=== PATIENT | male | born 1980 | race African-American/Black ===

== ENCOUNTER 2017-04-08 15:33 | Inpatient (IN) | payer BC, OTHER ==
--- NOTE | 2017-04-08 16:17 | PDOC ---
History of Present Illness - General Chief Complaint: Eye Problem Stated Complaint: PAIN AND PRESSURE BEHIND EYE Time Seen by Provider: 04/08/17 16:17 - History of Present Illness Initial Comments: 36 year old male with HTN presenting with graduallyworsenign vision over the past 6 months. He was seen by Dr. Gramajo on 01/02/17 for worsening vision during whch he had a CT head without con that only demonstrated a probable right temporal arachnoid cyst with grade II paipilledema and 20/25 vision bilaterally. He was supposed to increase his anti-htn meds and add on Diamox but never started his Diamox due to some confusion. Since then he has had worsening vision and saw his Opthomolgist (Dr. Jett) on the day of admission who notices slightly worsened visual acuity at 20/30 bilaterally and blurred optic disk margins. Today he is complaining of worsened vision and occasional eye tearing. Of note, an MRI on 01/27/17 which was essentially negative for any edema. 04/08/17 19:29 04/08/17 20:07 04/08/17 20:10 Past History - Past Medical History Allergies/Adverse Reactions: Allergies Allergy/AdvReac Type Severity Reaction Status Date / Time No Known Allergies Allergy Verified 04/08/17 15:54 Home Medications: Ambulatory Orders NK [No Known Home Medication] 04/08/17 Diabetes: Yes HTN: Yes Hypercholesterolemia: Yes - Psycho/Social/Smoking Cessation Hx Suicidal Ideation: No Smoking History: Never smoked Have you smoked in the past 12 months: No Information on smoking cessation initiated: No Hx Alcohol Use: Yes (socially) Drug/Substance Use Hx: No Substance Use Type: None Review of Systems - Review of Systems Constitutional: No: Chills, Diaphoresis, Fever HEENTM: Yes: Eye Pain, Blurred Vision, Recent change in vision Respiratory: No: Cough, Orthopnea, Shortness of Breath, SOB with Exertion Cardiac (ROS): No: Chest Pain, Irregular Heart Rate, Lightheadedness ABD/GI: No: Abdominal Distended, Constipated, Diarrhea, Nausea Musculoskeletal: No: Back Pain, Gout, Joint Pain Integumentary: No: Change in Color, Erythema, Flushing, Lesions Neurological: No: Headache, Numbness, Paresthesia *Physical Exam - Vital Signs Last Vital Signs Temp Pulse Resp BP Pulse Ox 98.5 F 98 H 20 145/93 100 04/08/17 15:46 04/08/17 15:46 04/08/17 15:46 04/08/17 15:46 04/08/17 15:46 - Physical Exam General Appearance: Yes: Appropriately Dressed. No: Apparent Distress HEENT: positive: EOMI (Endorses some pain with EOM), Other (Recent Opthalmalogic exam by Dr. Lerma: 20/30 vision bilaterally iop 20 and 18. PEERA but poorly reactive. Conjunctiva/ Scleera- trace staining. Cornea- no superficial punctate keratopathy. Anterior CHamber- Dep and quiet. Iris - wnl. Lens- clear. Cup/ Disc Ratio 0.25 with worsening edema and blurred disk margins. ). negative: RABIA (Pupils dilated in the setting of recent opthamolgist visit and eye drop administration) Neck: positive: Trachea midline, Normal Thyroid, Supple. negative: Tender, Rigid Respiratory/Chest: positive: Lungs Clear, Normal Breath Sounds. negative: Chest Tender, Respiratory Distress, Accessory Muscle Use Cardiovascular: positive: Regular Rhythm, Regular Rate, S1, S2. negative: Edema , Murmur Gastrointestinal/Abdominal: positive: Normal Bowel Sounds, Flat, Soft. negative : Tender Integumentary: positive: Normal Color, Dry Neurologic: positive: Fully Oriented, Alert, Normal Mood/Affect ED Treatment Course - LABORATORY CBC & Chemistry Diagram: 04/08/17 18:00 04/08/17 18:00 Medical Decision Making - Medical Decision Making 36 year old with HTN and HLD presenting with gradually worsenign vision and pailledema on recent opthalmic exam. Recommedned by both his opthalmologist and neurlogist to have an LP performed. After converssation with Dr. Gramajo he needs a radiographic guided LP (given body habitus) with opening pressure, closing pressure, gram stain, glucose, protein, cell count, differential, closing pressure, TB, Cryptoccocus, and 50 CC drained total for therapy. Will admit patient for IR guided LP, optho, and neuro consult. 04/08/17 20:14 04/08/17 20:19 *DC/Admit/Observation/Transfer Diagnosis at time of Disposition: Intracranial hypertension - Discharge Dispostion Admit: Yes - Attestations Physician Attestion: 04/08/17 20:27 I, Dr. Eli Petty, attest that this document has been prepared under my direction and personally reviewed by me in its entirety. I further attest, that it accurately reflects all work, treatment, procedures and medical decision -making performed by me.
[2017-04-08] MEDS ORDERED: ACETAMINOPHEN 1000 MG/100 ML VIAL (NON FORMULARY) IVPB ONE (17:47)
[2017-04-08] MEDS ORDERED: METOCLOPRAMIDE HCL INJECTION 10 MG/2 ML VIAL IVPB ONE (17:47)
[2017-04-08] MEDS ORDERED: METOCLOPRAMIDE HCL INJECTION 10 MG/2 ML VIAL ONE (17:50)
[2017-04-08] MEDS ORDERED: ACETAMINOPHEN INJECTION 100 ML IVPB ONE (18:03)
[2017-04-08 18:11] LABS: URINE APPEARANCE CLEAR; URINE BILIRUBIN NEGATIVE (NEGATIVE); URINE BLOOD NEGATIVE (NEGATIVE); URINE COLOR STRAW; URINE GLUCOSE (UA) 1+ (NEGATIVE); URINE KETONE NEGATIVE (NEGATIVE); URINE LEUK ESTERASE NEGATIVE (NEGATIVE); URINE NITRITE NEGATIVE (NEGATIVE); URINE PROTEIN NEGATIVE (NEGATIVE); URINE UROBILINOGEN NEGATIVE mg/dL (0.2-1.0)
--- NOTE | 2017-04-08 18:15 | PDOC ---
Attending Attestation - Resident Resident Name: Eli Petty - ED Attending Attestation I have performed the following: I have examined & evaluated the patient, The case was reviewed & discussed with the resident, I agree w/resident's findings & plan, Exceptions are as noted - HPI HPI: 04/08/17 18:09 36-year-old male with past medical history of hypertension, hyperlipidemia, obesity presents with progressive worsening of papilledema. Patient has had intermittent blurry vision for last 6 months where he was evaluated by a neurologist, Dr. Barbour and an sterilisation technician Dr. Pam Garcia. Initially, the patient had a head CT that was unremarkable and was seen by the neurologist who advised the patient may potentially have pseudotumor cerebri and was given a prescription for Diamox and counseled on weight loss. Patient was unable to fill his prescription and did not Diamox. He did however in January 2017 follow-up with an MRI which was unremarkable. Last 2 days, patient's complaint of progressive bilateral eye pressures and blurry vision. He had seen the oncologist today when noted vision of 20/30 both eyes and throat unremarkable exam demonstrated papilledema worsened in both eyes. The patient is up most contact his neurologist and advised patient to come to the ER for further evaluation. Denies headache. 04/08/17 18:[address] Garcia's notes: "Vasc 20/30 ou - blurry IOP: 20mmHg 18 mmHg Pupilars PERRLA but poorly reactive" Conjunctiva/Sclera - trace straining ou Cornea - no superficial punctate keratopathy ou Anterio chamber - deep and quiet ou Iris - WNL ou Lens - clear Dilated fundus Exam with tropicamide 0.5% 90 and 20 diopter lens Cup/Disc Ratio 0.25 ou with worsening EDEMA ou - blurred disk margins normal macula, vessels, and periphery" - Physicial Exam PE: 04/08/17 18:17 GENERAL: Awake, alert, and fully oriented, in no acute distress. Obese HEAD: No signs of trauma EYES: PERRLA, EOMI, sclera anicteric, conjunctiva clear ENT: Auricles normal inspection, hearing grossly normal, nares patent, oropharynx clear without exudates. NECK: Normal ROM, supple, no lymphadenopathy, JVD, or masses LUNGS: Breath sounds equal, clear to auscultation bilaterally. No wheezes, and no crackles HEART: Regular rate and rhythm, normal S1 and S2, no murmurs, rubs or gallops ABDOMEN: Soft, nontender, normoactive bowel sounds. No guarding, no rebound. No masses EXTREMITIES: Normal range of motion, no edema. No clubbing or cyanosis. No cords, erythema, or tenderness NEUROLOGICAL: Cranial nerves II through XII grossly intact. Normal speech, normal gait SKIN: Warm, Dry, normal turgor, no rashes or lesions noted. - Medical Decision Making 04/08/17 18:17 Vital Signs Temp Pulse Resp BP Pulse Ox 98.5 F 98 H 20 145/93 100 04/08/17 15:46 04/08/17 15:46 04/08/17 15:46 04/08/17 15:46 04/08/17 15:46 Papilledema needs further evaluation. Within differential is pseudotumor cerebri. We'll contact patient's neurologist for further plan and disposition. 04/08/17 18:30 Dr. Barbour recommends admission for IR guided lumbar puncture and admission.
[2017-04-08 18:43] LABS: BASOPHIL 0.2 % (0-2.0); EOSINOPHIL 0.4 % (0-4.5); MCH 27.7 pg (25.7-33.7); MCHC 32.4 g/dl (32.0-35.9); MEAN CELL VOLUME 85.5 fl (80-96); MEAN PLT VOLUME 9.1 fl (7.5-11.1); NEUTROPHILS 68.5 % (42.8-82.8); PLATELET COUNT 237 K/MM3 (134-434); RDW 13.4 % (11.9-15.9); WHITE BLOOD COUNT 13.9 K/mm3 (4.0-10.0)
[2017-04-08 19:17] LABS: INR 0.97 (0.82-1.09); PROTHROMBIN TIME (PATIENT) 10.7 SEC (9.98-11.88)
[2017-04-08 19:20] LABS: ACTIVATED PTT 33.3 SECONDS (26.9-34.4)
[2017-04-08 19:24] LABS: ANION GAP 5 (8-16); BILIRUBIN,TOTAL 0.4 mg/dL (0.2-1.0); CALCIUM 9.6 mg/dL (8.5-10.1); CO2 32 mmol/L (21-32); CREATININE 1.1 mg/dL (0.7-1.3); GLUCOSE,RANDOM 145 mg/dL (74-106); SGOT/AST 21 U/L (15-37); SGPT/ALT 42 U/L (12-78); TOT PROT 8.4 g/dl (6.4-8.2)
--- NOTE | 2017-04-08 19:24 | PN ---
Teaching Attending Note Name of Resident: Kami Harman ATTENDING PHYSICIAN STATEMENT I saw and evaluated the patient. I reviewed the resident's note and discussed the case with the resident. I agree with the resident's findings and plan as documented. SUBJECTIVE: 36 M with pmhx of HTN and HLD, who was sent in by Opthomology for worsening vision. Blurry vision started 3 years ago and at that time he had his vision checked and it was 20/20, States it has been gradually worsening over [address] head outpt. with eval by Dr. Barbour in December. CT head showed Arachnoid cyst with grade II Papilledema. He saw Opthomology today who noted on fundal exam worsening edema and blurred disk margin. Denies any currrent headaches, chest pain or pressure. OBJECTIVE: Physical: VS: Vital Signs Period Temp Pulse Resp BP Sys/Means Pulse Ox Last 24 Hr 98.3 F-98.5 F 87-98 20-20 145-145/80-93 98-100 GEN: Obese Male, resting in bed, in NAD HEENT: NCAT, PERRL, throat without erythema or exudates CARD: RRR S1, S2 RESP: CTAB ABD: BSX4, NTD to palpation EXT: RLE edema > LLE, pulses intact CBCD WBC 13.9 K/mm3 (4.0-10.0) H 04/08/17 18:00 RBC 4.45 M/mm3 (4.00-5.60) 04/08/17 18:00 Hgb 12.3 GM/dL (11.7-16.9) 04/08/17 18:00 Hct 38.0 % (35.4-49) 04/08/17 18:00 MCV 85.5 fl (80-96) 04/08/17 18:00 MCHC 32.4 g/dl (32.0-35.9) 04/08/17 18:00 RDW 13.4 % (11.9-15.9) 04/08/17 18:00 Plt Count 237 K/MM3 (134-434) 04/08/17 18:00 MPV 9.1 fl (7.5-11.1) 04/08/17 18:00 CMP Sodium 141 mmol/L (136-145) 04/08/17 18:00 Potassium 4.0 mmol/L (3.5-5.1) 04/08/17 18:00 Chloride 104 mmol/L (98-107) 04/08/17 18:00 Carbon Dioxide 32 mmol/L (21-32) 04/08/17 18:00 Anion Gap 5 (8-16) L 04/08/17 18:00 BUN 14 mg/dL (7-18) 04/08/17 18:00 Creatinine 1.1 mg/dL (0.7-1.3) 04/08/17 18:00 Creat Clearance w eGFR > 60 (>60) 04/08/17 18:00 Random Glucose 145 mg/dL (74-106) H 04/08/17 18:00 Calcium 9.6 mg/dL (8.5-10.1) 04/08/17 18:00 Total Bilirubin 0.4 mg/dL (0.2-1.0) 04/08/17 18:00 AST 21 U/L (15-37) 04/08/17 18:00 ALT 42 U/L (12-78) 04/08/17 18:00 Alkaline Phosphatase 94 U/L (45-117) 04/08/17 18:00 Total Protein 8.4 g/dl (6.4-8.2) H 04/08/17 18:00 Albumin 4.0 g/dl (3.4-5.0) 04/08/17 18:00 CXR- No acute process EKG: NSR ASSESSMENT AND PLAN: 36 M with pmhx of HTN and HLD with hx of blurry vision with worsening edema, Admitted for papillidema 1.) Papilledema- DDx: Psuedotumor Cerebri - Diamox 500 mg BID - LP under fluroscopy - FU MRI Brain - Neuro/Optho consult - CSF Profile, gram stain, glucose, cell count and differential, TB, Cryptococcus, protein, - measure opening/closing pressures and drain total of 50 cc as per neuro reccs to ED. 2.) HTN - Amlodipine 10mg - Losartan/HCTZ 3.) HLD - C/W Simvastatin 4.) RLE Edema - Duplex RLE 5.) Dvt Ppx - SCDs Place in [facility]-Sx
[2017-04-08 19:25] LABS: ALK PHOS 94 U/L (45-117)
--- NOTE | 2017-04-08 20:54 | HP ---
CHIEF COMPLAINT: blurry vision PCP: Dr. Flor HISTORY OF PRESENT ILLNESS: 36 yo M with PMH of HTN, presenting with blurry vision x 3 days. Pt has had HTN for years, which is not well controlled with medication, as typical BP is 140's/90's per pt. Pt reports blurry vision which has been gradually worsening for 6 months. Pt was seen by Neurology (Dr. Barbour) in December 2016, and had a head CT which revealed a CSF filled space in the right temporal lobe, probable arachnoid cyst. Today he c/o worsening vision, and pt saw his [employer] ( Dr. Lerma) who noted papilledema. Pt reports a feeling of pressure behind the eyes, and also c/o headache. ER course was notable for: (1) Acetaminophen Injection 1,000mg IVPB given once, which relieved headache. PAST MEDICAL HISTORY: HTN for "years" PAST SURGICAL HISTORY: none Social History: Smoking: never smoked Alcohol: socially Drugs: none Allergies No Known Allergies Allergy (Verified 04/08/17 15:54) HOME MEDICATIONS: Home Medications Medication Instructions Recorded NK [No Known Home Medication] 04/08/17 REVIEW OF SYSTEMS CONSTITUTIONAL: Absent: fever, chills, diaphoresis, generalized weakness, malaise, loss of appetite, weight change HEENT: (+) eye pain, visual changes, blurred vision Absent: rhinorrhea, nasal congestion, throat pain, throat swelling, difficulty swallowing, mouth swelling, ear pain, CARDIOVASCULAR: Absent: chest pain, syncope, palpitations, irregular heart rate, lightheadedness RESPIRATORY: Absent: cough, shortness of breath, dyspnea with exertion, orthopnea, wheezing, stridor, hemoptysis GASTROINTESTINAL: Absent: abdominal pain, abdominal distension, vomiting, diarrhea, constipation, melena, hematochezia GENITOURINARY: Absent: dysuria, frequency, urgency, hesitancy, hematuria, flank pain, genital pain MUSCULOSKELETAL: Absent: myalgia, arthralgia, joint swelling SKIN: Absent: rash, itching, pallor HEMATOLOGIC/IMMUNOLOGIC: Absent: easy bleeding, easy bruising, lymphadenopathy, frequent infections ENDOCRINE: Absent: unexplained weight gain, unexplained weight loss, heat intolerance, cold intolerance NEUROLOGIC: (+) headache Absent: focal weakness or paresthesias, dizziness, unsteady gait, seizure, mental status changes, bladder or bowel incontinence PSYCHIATRIC: Absent: anxiety, depression, suicidal or homicidal ideation, hallucinations. PHYSICAL EXAMINATION Vital Signs - 24 hr 04/08/17 20:02 Temperature 98.3 F Pulse Rate [ 87 Left Radial] Respiratory 20 Rate Blood Pressure 145/80 [Left Arm] O2 Sat by Pulse 98 Oximetry (%) CBCD WBC 13.9 K/mm3 (4.0-10.0) H 04/08/17 18:00 RBC 4.45 M/mm3 (4.00-5.60) 04/08/17 18:00 Hgb 12.3 GM/dL (11.7-16.9) 04/08/17 18:00 Hct 38.0 % (35.4-49) 04/08/17 18:00 MCV 85.5 fl (80-96) 04/08/17 18:00 MCHC 32.4 g/dl (32.0-35.9) 04/08/17 18:00 RDW 13.4 % (11.9-15.9) 04/08/17 18:00 Plt Count 237 K/MM3 (134-434) 04/08/17 18:00 MPV 9.1 fl (7.5-11.1) 04/08/17 18:00 CMP Sodium 141 mmol/L (136-145) 04/08/17 18:00 Potassium 4.0 mmol/L (3.5-5.1) 04/08/17 18:00 Chloride 104 mmol/L (98-107) 04/08/17 18:00 Carbon Dioxide 32 mmol/L (21-32) 04/08/17 18:00 Anion Gap 5 (8-16) L 04/08/17 18:00 BUN 14 mg/dL (7-18) 04/08/17 18:00 Creatinine 1.1 mg/dL (0.7-1.3) 04/08/17 18:00 Creat Clearance w eGFR > 60 (>60) 04/08/17 18:00 Calcium 9.6 mg/dL (8.5-10.1) 04/08/17 18:00 Total Bilirubin 0.4 mg/dL (0.2-1.0) 04/08/17 18:00 AST 21 U/L (15-37) 04/08/17 18:00 ALT 42 U/L (12-78) 04/08/17 18:00 Alkaline Phosphatase 94 U/L (45-117) 04/08/17 18:00 Total Protein 8.4 g/dl (6.4-8.2) H 04/08/17 18:00 Albumin 4.0 g/dl (3.4-5.0) 04/08/17 18:00 GENERAL: Awake, alert, and fully oriented, in no acute distress. HEAD: Normal with no signs of trauma. EYES: Pupils equal, round and reactive to light, extraocular movements intact, sclera anicteric, conjunctiva clear. No lid lag. EARS, NOSE, THROAT: Ears normal. Moist mucous membranes. NECK: no JVD, or masses. LUNGS: Breath sounds equal, clear to auscultation bilaterally. No wheezes, and no crackles. No accessory muscle use. HEART: Regular rate and rhythm, normal S1 and S2 without murmur, rub or gallop. ABDOMEN: Soft, nontender, not distended, normoactive bowel sounds, no guarding, no rebound, no masses. No hepatomegaly or splenomegaly. LOWER EXTREMITIES: 2+ pulses, warm, well-perfused. No calf tenderness. RLE edema, warmth NEUROLOGICAL: Normal speech. PSYCHIATRIC: Cooperative. Good eye contact. Appropriate mood and affect. SKIN: Warm, dry, normal turgor, no rashes or lesions noted. IMAGIN04/08/17 - CXR reveals possible cardiomegaly, and no acute lung pathology. 04/08/17 - Brain MRI w/o contrast reveals no significant interval change or gross acute intracranial pathology. 04/08/17 - Duplex U/S negative for DVT. 01/27/17 - Brain MRI w/o contrast reveals no evidence of edema, acute ischemic changes, hemorrhage, or demyelinating process. ASSESSMENT/PLAN: 36 yo M with PHM of HTN presents with blurred vision adm to med-surg for pseudotumor cerebri. (1) pseudotumor cerebri - blurred vision and pain resolved now - add Diamox 500ml IV BID - Brain MRI w/o contrast - LP by Interventional Radiology, f/u CSF analysis - Neurology Consult - Ophthamology Consult (2) Leukocytosis - likely reactive - cont. to monitor (2) HTN - add Amlodipine 10mg PO daily - add Losartan 50 HCTZ 12.5 PO daily (3) RLE edema - no DVT per Duplex U/S - cont. to monitor (4) hyperglycemia - f/u HbgA1C (5) FEN - NPO (6) Prophylaxis - DVT prophylaxis with SCDs Visit type - Emergency Visit Emergency Visit: Yes ED Registration Date: 04/08/17 Care time: The patient presented to the Emergency Department on the above date and was hospitalized for further evaluation of their emergent condition. - New Patient This patient is new to me today: Yes Date on this admission: 04/09/17 - Critical Care Critical Care patient: No
[2017-04-09] MEDS: DEXTROSE 5% IV SCH ×2 (00:37→12:13)
[2017-04-09] MEDS: WATER IV SCH ×2 (00:37→12:13)
[2017-04-09] MEDS: ACETAZOLAMIDE IV SCH ×2 (00:37→12:13)
[2017-04-09 03:02] VITALS: BMI 45.4
[2017-04-09 08:38] LABS: BASOPHIL 0.4 % (0-2.0); EOSINOPHIL 0.4 % (0-4.5); MCH 28.9 pg (25.7-33.7); MCHC 33.8 g/dl (32.0-35.9); MEAN CELL VOLUME 85.4 fl (80-96); NEUTROPHILS 69.3 % (42.8-82.8); PLATELET COUNT 230 K/MM3 (134-434); RDW 13.6 % (11.9-15.9); WHITE BLOOD COUNT 11.6 K/mm3 (4.0-10.0)
[2017-04-09 08:51] LABS: INR 1.08 (0.82-1.09); PROTHROMBIN TIME (PATIENT) 11.9 SEC (9.98-11.88)
[2017-04-09 08:54] LABS: ACTIVATED PTT 32.3 SECONDS (26.9-34.4)
[2017-04-09 09:10] LABS: ANION GAP 7 (8-16); CALCIUM 9.3 mg/dL (8.5-10.1); CO2 31 mmol/L (21-32); GLUCOSE,RANDOM 141 mg/dL (74-106)
[2017-04-09] MEDS ORDERED: WATER IV SCH (10:00)
[2017-04-09] MEDS ORDERED: DEXTROSE 5% IV SCH (10:00)
[2017-04-09] MEDS ORDERED: ACETAZOLAMIDE IV SCH (10:00)
[2017-04-09] MEDS ORDERED: amLODIPine BESYLATE 10 MG TABLET (FP) PO SCH (10:00)
[2017-04-09] MEDS ORDERED: LOSARTAN 50MG/HCTZ 12.5MG 1 TAB (FP) PO SCH (10:00)
[2017-04-09] MEDS ORDERED: PT OWN MED DRAWER 7, Y5N ONE (10:25)
--- NOTE | 2017-04-09 13:07 | EKG ---
Test Reason : Blood Pressure : / mmHG Vent. Rate : 082 BPM Atrial Rate : 082 BPM P-R Int : 186 ms QRS Dur : 110 ms QT Int : 386 ms P-R-T Axes : 034 000 007 degrees QTc Int : 450 ms NORMAL SINUS RHYTHM MINIMAL VOLTAGE CRITERIA FOR LVH, MAY BE NORMAL VARIANT CANNOT RULE OUT ANTERIOR INFARCT , AGE UNDETERMINED ABNORMAL ECG NO PREVIOUS ECGS AVAILABLE Confirmed by JESSICA ALVES MD ([id number]) on 04/09/2017 1:07:28 PM Referred By: Confirmed By:JESSICA ALVES MD
[2017-04-09 14:07] VITALS: BP 149/84; PULSE 81; TEMP 98.7
--- NOTE | 2017-04-09 17:18 | PN ---
Teaching Attending Note Name of Resident: Ekta Boyd ATTENDING PHYSICIAN STATEMENT I saw and evaluated the patient. I reviewed the resident's note and discussed the case with the resident. I agree with the resident's findings and plan as documented. SUBJECTIVE: OBJECTIVE: Vital Signs Period Temp Pulse Resp BP Sys/Means Pulse Ox Last 24 Hr 98.3 F-98.9 F 81-88 18-22 122-157/80-87 97-98 ASSESSMENT AND PLAN:
--- NOTE | 2017-04-09 18:26 | DS ---
Physical Exam: SUBJECTIVE: Patient seen and examined at bedside today. Pt stated that his vision was less blurry. However, he was very upset that neurology had not seen him yet, as he is waiting to have his LP procedure done. Pt left AMA for this reason. OBJECTIVE: Vital Signs Period Temp Pulse Resp BP Sys/Means Pulse Ox Last 24 Hr 98.3 F-98.7 F 81-88 18-22 122-149/80-84 97-98 PHYSICAL EXAM GENERAL: The patient is awake, alert, and fully oriented, in no acute distress. HEAD: Normal with no signs of trauma. EYES: PERRL, extraocular movements intact, bitemporal hemianopsia NECK: Trachea midline, full range of motion, supple. LUNGS: Breath sounds equal, clear to auscultation bilaterally, no wheezes, no crackles, no accessory muscle use. HEART: Regular rate and rhythm, S1, S2 without murmur, rub or gallop. ABDOMEN: Soft, nontender, nondistended, normoactive bowel sounds, no guarding, no rebound EXTREMITIES: 2+ posterior tibial pulses, warm, well-perfused, no edema. NEUROLOGICAL: Cranial nerves II through XII grossly intact. LABS Laboratory Results - last 24 hr 04/09/17 04/09/17 04/09/17 07:48 07:48 07:48 WBC 11.6 H RBC 4.37 Hgb 12.6 Hct 37.4 MCV 85.4 MCH 28.9 MCHC 33.8 RDW 13.6 Plt Count 230 MPV 9.0 Neutrophils % 69.3 Lymphocytes % 22.5 Monocytes % 7.4 Eosinophils % 0.4 Basophils % 0.4 INR 1.08 PTT (Actin FS) 32.3 Sodium 142 Potassium 3.9 Chloride 104 Carbon Dioxide 31 Anion Gap 7 L BUN 10 D Creatinine 1.0 Random Glucose 141 H Hemoglobin A1c % Calcium 9.3 Blood Type Antibody Screen 04/09/17 04/09/17 04/09/17 07:48 07:48 08:58 WBC RBC Hgb Hct MCV MCH MCHC RDW Plt Count MPV Neutrophils % Lymphocytes % Monocytes % Eosinophils % Basophils % INR PTT (Actin FS) Sodium Potassium Chloride Carbon Dioxide Anion Gap BUN Creatinine Random Glucose Hemoglobin A1c % 8.3 H Calcium Blood Type A POSITIVE A POSITIVE Antibody Screen Negative HOSPITAL COURSE: Date of Admission:04/08/17 Date of Discharge: 04/09/17 Admit diagnosis: Pseudotumor Cerebri Pre-admission course 36 yo M with PMH of HTN, presenting with blurry vision x 3 days. Pt has had HTN for years, which is not well controlled with medication, as typical BP is 140's/90's per pt. Pt reports blurry vision which has been gradually worsening for 6 months. Pt was seen by Neurology (Dr. Barbour) in December 2016, and had a head CT which revealed a CSF filled space in the right temporal lobe, probable arachnoid cyst. Today he c/o worsening vision, and pt saw his Hospice Coordinator ( Dr. Lerma) who noted papilledema. Pt reports a feeling of pressure behind the eyes, and also c/o headache. ER course was notable for: (1) Acetaminophen Injection 1,000mg IVPB given once, which relieved headache. Hospital course Pt was admitted to floor for possible pseudotumor cerebri. He was managed on Diamox 500 IV BID. Brain MRI was WNL, and he was scheduled to have LP done today by IR. Pt was also scheduled to be seen by Neuro. However, pt became very impatient and angry that he had to wait for his procedure to be done, so he left AMA. Pt was provided with risks of leaving before he made his decision. Minutes to complete discharge: 32 Discharge Summary Reason For Visit: INTERACRANIAL HYPERTENSION/PAPILLEDEMA Current Active Problems Intracranial hypertension (Acute) - Instructions Disposition: AGAINST MEDICAL ADVICE - Home Medications Comprehensive Discharge Medication List: Ambulatory Orders NK [No Known Home Medication] 04/08/17 This patient is new to me today: Yes Date on this admission: 04/09/17 Emergency Visit: No Critical Care patient: No - Discharge Referral Referred to [facility] Med P.C.: No
--- NOTE | 2017-04-09 18:46 | CONSULT ---
Consult - text type - Consultation Consultation Note: NEUROLOGY CONSULTATION: Pt known to me with pseudotumor cerebri. Seen in December. Apparently not taking Diamox according to ophthalmology. Missed Neuro F/U as out patient last week. Admitted for LP and drainage. Left AMA before Neurology f/u or LP. Plan: Will attempt to arrange as out patient. Continue/resume Diamox 500 mg BID Thank you very much, Lion Barbour MD
--- NOTE | 2017-04-09 20:09 | PN ---
Progress Note (short form) - Note Progress Note: 36year old male with headaches and vision changes, admitted pseudotumor cerebri. Patient was scheduled for lumbar puncture and on acetazolamide. Neurology consulted. This afternoon I was personally re- rounded on patients, while on sixth floor I encountered standing in the hallway telling nurses that he wanted to "sign out", and "give me the paper". When he saw me his voiced began to escalate and asked if I was coming to see him. I explained to him yes. Also, neurology will see him and lumbar puncture will be done after neurology evaluation for safety of procedure given his current condition and previous history. He proceeded to yell and curse at me and the nursing staff. He wanted to sign out I explained to him the risks while the nursing care attendant also explained that he will be responsible for hospital bill as well. His then came out and started to yell at myself and the staff. She asked me if they had to pay as well so I explained yes, if they leave against medical advice. She then proceeded to yell and lean over the nursing station counter, being very aggressive, her had to pull her back. She was acting like she wanted get physically violent towards me. She asked for my name and spelling, I spelled it out for her out loud. Condition 10 was called. I left the area, I felt threatened at that time. Patient left AMA.
== END 2017-04-09 16:12 | disposition left against medical advice (07) | DRG 103 ==
LOC: JER 15:33 → JERBED 19:27 → J6S 20:54
PROVIDERS: ADMIT Internal Medicine; ATTEND Internal Medicine
DX: G93.2 Benign intracranial hypertension (principal); Z68.42 Body mass index [BMI] 45.0-49.9, adult; Z71.3 Dietary counseling and surveillance; I10 Essential (primary) hypertension; E78.5 Hyperlipidemia, unspecified; E66.8 Other obesity; R60.0 Localized edema; D72.828 Other elevated white blood cell count; E11.65 Type 2 diabetes mellitus with hyperglycemia
CPT/HCPCS: 36415; 70551-TC; 71010-TC; 80048; 80053; 81003; 83036; 85025; 85610; 85730; 86850; 86900; 86901; 93005; 93010; 93971-TC; 97116-GP; 97161-GP; 99285-25